=== PATIENT | male | born 1975 | race Caucasian/White ===

== ENCOUNTER 2017-06-10 19:06 | Emergency (ER) | payer MEDICARE, OTHER ==
[~2017-06-10] VITALS: Ht 180.3 cm; Wt 156.9 kg
[~2017-06-10 19:06] MED LIST: ATOR40TA59 PO; HYDR-2762 PO; IPRA3AMP NEB; OMEP20CA9 PO; PROP20TA PO
[2017-06-10 19:20] VITALS: BP 152/95
[2017-06-10] MEDS ORDERED: FLUORESCEIN OPHTH TEST STRIP. ONE (19:26)
[2017-06-10] MEDS ORDERED: TETRACAINE 0.5% OPHTH SOLUTION 4ML BOTTLE. ONE (19:27)
[2017-06-10] MEDS ORDERED: TETRACAINE 0.5% OPHTH SOLUTION 4ML BOTTLE. OD ONE (19:30)
[2017-06-10] MEDS ORDERED: FLUORESCEIN OPHTH TEST STRIP. OD ONE (19:30)
[2017-06-10] MEDS ORDERED: POLY10DR EACHEYE (19:46)
--- NOTE | 2017-06-10 19:47 | PHYS DOC ---
Past Medical History Past Medical History: GERD, Migraines, Other Additional Past Medical Histor: tourettes, right knee pain Past Surgical History: Other Additional Past Surgical Histo: DENTAL , RT KNEE Alcohol Use: None Drug Use: None Adult General Chief Complaint Chief Complaint: FOREIGN BODY/EYES HPI HPI Patient is a 42 year old male presents to the emergency department with foreign body sensation in the right eye. Patient states he was working on his truck yesterday when a piece arrest went in his eye. He states he removed the rest but has persistent discomfort and photophobia. No other complaints. Review of Systems Review of Systems Constitutional: Denies fever or chills [] Eyes: Photophobia, eye discomfort without visual disturbance HENT: Denies nasal congestion or sore throat [] Respiratory: Denies cough or shortness of breath [] Cardiovascular: No additional information not addressed in HPI [] GI: Denies abdominal pain, nausea, vomiting, bloody stools or diarrhea [] : Denies dysuria or hematuria [] Musculoskeletal: Denies back pain or joint pain [] Integument: Denies rash or skin lesions [] Neurologic: Denies headache, focal weakness or sensory changes [] Endocrine: Denies polyuria or polydipsia [] All other systems were reviewed and found to be within normal limits, except as documented in this note. Current Medications Current Medications Current Medications Medications (Trade) Dose Ordered Sig/Demetra Start Time Stop Time Status Last Admin Dose Admin Fluorescein Sodium (Ful-Sussy) 1 strip STK-MED ONCE 06/10/17 19:26 06/10/17 19:27 DC Tetracaine HCl (Tetracaine) 40 drop STK-MED ONCE 06/10/17 19:27 06/10/17 19:28 DC Allergies Allergies Allergies Coded Allergies Type Severity Reaction Last Updated Verified No Known Drug Allergies 07/28/13 No Physical Exam Physical Exam Constitutional: Well developed, well nourished, no acute distress, non-toxic appearance. [] Eyes: Affected eyes the right eye, sclera clear, pupil equal round reactive to light, funduscopic exam is benign. No visualized foreign body. Current Patient Data Vital Signs Vital Signs Date Time Temp Pulse Resp B/P (MAP) Pulse Ox O2 Delivery O2 Flow Rate FiO2 06/10/17 19:20 98.0 105 20 94 Room Air 98.0 EKG EKG [] Radiology/Procedures Radiology/Procedures [] Course & Med Decision Making Course & Med Decision Making Pertinent Labs and Imaging studies reviewed. (See chart for details) []Right eye anesthetized with Alcaine, upper lid everted, no foreign body visualized, or see stain applied. Visualized with the Au lamp, no foreign body, no corneal abrasion. Patient right eye copiously irrigated. Tolerated well. No foreign body sensation. Dragon Disclaimer Dragon Disclaimer This electronic medical record was generated, in whole or in part, using a voice recognition dictation system. Departure Departure Impression: Primary Impression: Eye pain Disposition: HOME, SELF-CARE Condition: STABLE Referrals: KAYDEN WELSH MD (PCP) [facility], Patient Instructions: Eye Injury-Brief Scripts Polymyxin B Sulf/Trimethoprim (POLYTRIM EYE DROPS) 10 Ml Drops 1 DROP EACHEYE Q6HRS for 5 Days, #10 ML Prov: DENI SALAZAR APRN 06/10/17 Problem Qualifiers Primary Impression: Eye pain Laterality: right Qualified Codes: H57.11 - Ocular pain, right eye DENI SALAZAR APRN Jun 10, 2017 19:47
[2017-06-10] MEDS ORDERED: DIPHTH,PERTUSS(ACELL),TET TOX 0.5 ML DISP.SYRIN. VAX IM ONE (20:15)
== END 2017-06-10 20:05 | disposition home or self-care (01) ==
LOC: ER 19:06
DX: H57.11 Ocular pain, right eye (principal); H53.141 Visual discomfort, right eye; K21.9 Gastro-esophageal reflux disease without esophagitis; G43.909 Migraine, unspecified, not intractable, without status migrainosus
CPT/HCPCS: 90471; 90715; 99283-25

== ENCOUNTER 2018-03-23 07:11 | Inpatient (IN) | payer MEDICARE, OTHER ==
[~2018-03-23] VITALS: Ht 180.3 cm; Wt 190.1 kg
[~2018-03-23 07:11] MED LIST changes: -IPRA3AMP NEB; +IPRA3AMP29 NEB; +POLY10DR EACHEYE
--- NOTE | 2018-03-23 07:20 | EKG ---
[facility] [address] [place] [address] Test Date: 2018-03-23 Test Time: 07:14:23 Pat Name: KEVIN BARBOZA Department: Room: Gender: M Art Class Model: : 1975 Requested By: LUZ LEES Order Number: [id number] Reading MD: Rocky Freitas MD Measurements Intervals [place] Rate: 95 P: 29 ID: 158 QRS: 28 QRSD: 86 T: 28 QT: 356 QTc: 451 Interpretive Statements SINUS RHYTHM Electronically Signed On 03-23-2018 12:28:07 CDT by Rocky Freitas MD
--- NOTE | 2018-03-23 07:36 | PHYS DOC ---
Past Medical History Past Medical History: GERD, Migraines, Other Additional Past Medical Histor: tourettes, right knee pain Past Surgical History: Other Additional Past Surgical Histo: DENTAL , RT KNEE Alcohol Use: None Drug Use: None Adult General Chief Complaint Chief Complaint: CHEST PAIN HPI HPI Patient is a 42 year old male who was presented here by EMS for evaluation of chest pain that he started last night. Patient also complaint of trouble breathing with that. Patient denies any history of coronary artery disease, denies history of diabetic. Patient denied any history of hypertension. Patient is obese. She denies any recent cough, no recent travel, no recent operation. She said the pain started in his left arm, radiated to his shoulder and into his chest. EMS were called, they gave him 324 mg aspirin, given 1 dose of nitroglycerin, that seemed to reduce the pain. Review of Systems Review of Systems Constitutional: Denies fever or chills [] Eyes: Denies change in visual acuity, redness, or eye pain [] HENT: Denies nasal congestion or sore throat [] Respiratory: Denies cough or shortness of breath [] Cardiovascular: Positive for chest pain. GI: Denies abdominal pain, nausea, vomiting, bloody stools or diarrhea [] : Denies dysuria or hematuria [] Musculoskeletal: Denies back pain or joint pain [] Integument: Denies rash or skin lesions [] Neurologic: Denies headache, focal weakness or sensory changes [] Endocrine: Denies polyuria or polydipsia [] All other systems were reviewed and found to be within normal limits, except as documented in this note. Allergies Allergies Allergies Coded Allergies Type Severity Reaction Last Updated Verified No Known Drug Allergies 07/28/13 No Physical Exam Physical Exam Constitutional: Well developed, well nourished, no acute distress, non-toxic appearance. Morbidly obese. HENT: Normocephalic, atraumatic, bilateral external ears normal, oropharynx moist, no oral exudates, nose normal. [] Eyes: PERRLA, EOMI, conjunctiva normal, no discharge. [] Neck: Normal range of motion, no tenderness, supple, no stridor. [] Cardiovascular:Heart rate regular rhythm, no murmur [] Lungs & Thorax: Bilateral breath sounds clear to auscultation [] Abdomen: Bowel sounds normal, soft, no tenderness, no masses, no pulsatile masses. [] Skin: Warm, dry, no erythema, no rash. [] Back: No tenderness, no CVA tenderness. [] Extremities: No tenderness, no cyanosis, no clubbing, ROM intact, no edema. [] Neurologic: Alert and oriented X 3, normal motor function, normal sensory function, no focal deficits noted. [] Psychologic: Affect normal, judgement normal, mood normal. [] Current Patient Data Vital Signs Vital Signs Date Time Temp Pulse Resp B/P (MAP) Pulse Ox O2 Delivery O2 Flow Rate FiO2 03/23/18 09:30 78 14 162/83 (109) 96 Room Air 03/23/18 07:11 98.1 98.1 Lab Values Laboratory Tests Test 03/23/18 07:30 White Blood Count 10.2 x10^3/uL (4.0-11.0) Red Blood Count 4.52 x10^6/uL (4.30-5.70) Hemoglobin 13.4 g/dL (13.0-17.5) Hematocrit 38.5 % (39.0-53.0) L Mean Corpuscular Volume 85 fL (79-100) Mean Corpuscular Hemoglobin 30 pg (25-35) Mean Corpuscular Hemoglobin Concent 35 g/dL (31-37) Red Cell Distribution Width 16.0 % (11.5-14.5) H Platelet Count 367 x10^3/uL (140-400) Neutrophils (%) (Auto) 63 % (31-73) Lymphocytes (%) (Auto) 25 % (24-48) Monocytes (%) (Auto) 6 % (0-9) Eosinophils (%) (Auto) 5 % (0-3) H Basophils (%) (Auto) 1 % (0-3) Neutrophils # (Auto) 6.5 x10^3uL (1.8-7.7) Lymphocytes # (Auto) 2.6 x10^3/uL (1.0-4.8) Monocytes # (Auto) 0.6 x10^3/uL (0.0-1.1) Eosinophils # (Auto) 0.5 x10^3/uL (0.0-0.7) Basophils # (Auto) 0.1 x10^3/uL (0.0-0.2) Prothrombin Time 12.7 SEC (11.7-14.0) Prothrombin Time INR 1.0 (0.8-1.1) PTT 27 SEC (24-38) Sodium Level 140 mmol/L (136-145) Potassium Level 4.1 mmol/L (3.5-5.1) Chloride Level 103 mmol/L (98-107) Carbon Dioxide Level 32 mmol/L (21-32) Anion Gap 5 (6-14) L Blood Urea Nitrogen 12 mg/dL (8-26) Creatinine 1.0 mg/dL (0.7-1.3) Estimated GFR (Cockcroft-Gault) 82.8 BUN/Creatinine Ratio 12 (6-20) Glucose Level 197 mg/dL (70-99) H Calcium Level 9.0 mg/dL (8.5-10.1) Magnesium Level 1.9 mg/dL (1.8-2.4) Total Bilirubin 0.4 mg/dL (0.2-1.0) Aspartate Amino Transferase (AST) 36 U/L (15-37) Alanine Aminotransferase (ALT) 71 U/L (16-63) H Alkaline Phosphatase 90 U/L (46-116) Creatine Kinase 69 U/L (39-308) Creatine Kinase MB (Mass) < 0.5 ng/mL (0.0-3.6) Creatine Kinase MB Relative Index % (0-4) Troponin I Quantitative < 0.017 ng/mL (0.000-0.055) GD-Mqv-J-Type Natriuretic Peptide 38 pg/mL (0-124) Total Protein 7.1 g/dL (6.4-8.2) Albumin 3.1 g/dL (3.4-5.0) L Albumin/Globulin Ratio 0.8 (1.0-1.7) L Lipase 129 U/L (73-393) Laboratory Tests 03/23/18 07:30 Laboratory Tests 03/23/18 07:30 EKG EKG ekg: heart rate of 95 bpm, no STEMI. Radiology/Procedures Radiology/Procedures [][facility] [address] [place] [address] IMAGING REPORT Signed PATIENT: KEVIN BARBOZA ACCOUNT: [id number] : 1975 LOCATION: ER AGE: 42 SEX: M EXAM STATUS: PRE ER ORD. PHYSICIAN: LUZ LEES DO REASON: chest pain PROCEDURE: PORTABLE CHEST 1V Portable chest, 03/23/2018: HISTORY: Left-sided chest pain Comparison is made to a study from 08/11/2015. The heart size and pulmonary vascularity are normal. The lungs are clear. There is no evidence of pleural fluid. IMPRESSION: No acute cardiopulmonary abnormality is detected. Electronically signed by: Suellen Gan MD (03/23/2018 7:38 AM) [facility] DICTATED and SIGNED BY: SUELLEN GAN MD DATE: 03/23/18 0738 Course & Med Decision Making Course & Med Decision Making Pertinent Labs and Imaging studies reviewed. (See chart for details) [] Dragon Disclaimer Dragon Disclaimer This electronic medical record was generated, in whole or in part, using a voice recognition dictation system. Departure Departure Impression: Primary Impression: Chest pain Disposition: ADMITTED INPATIENT Admitting Physician: Luna Whaley Condition: STABLE Referrals: MADELINE OLIVARES (PCP) LUZ LEES DO Mar 23, 2018 07:36
--- NOTE | 2018-03-23 07:42 | RAD ---
Portable chest, 03/23/2018: HISTORY: Left-sided chest pain Comparison is made to a study from 08/11/2015. The heart size and pulmonary vascularity are normal. The lungs are clear. There is no evidence of pleural fluid. IMPRESSION: No acute cardiopulmonary abnormality is detected. Electronically signed by: Jed Gan MD (03/23/2018 7:38 AM) [facility]
[2018-03-23 07:45] LABS: BASO # 0.1 x10^3/uL (0.0-0.2); BASO % 1 % (0-3); EOS # 0.5 x10^3/uL (0.0-0.7); EOS % 5 % (0-3); HEMATOCRIT 38.5 % (39.0-53.0); HEMOGLOBIN 13.4 g/dL (13.0-17.5); LYMPH # 2.6 x10^3/uL (1.0-4.8); LYMPH % 25 % (24-48); MEAN CORPUSCULAR HEMOGLOBIN 30 pg (25-35); MEAN CORPUSCULAR HGB CONC 35 g/dL (31-37); MEAN CORPUSCULAR VOLUME 85 fL (79-100); MONO # 0.6 x10^3/uL (0.0-1.1); MONO % 6 % (0-9); NEUT # 6.5 x10^3uL (1.8-7.7); NEUT % 63 % (31-73); PLATELET COUNT 367 x10^3/uL (140-400); RED BLOOD COUNT 4.52 x10^6/uL (4.30-5.70); WHITE BLOOD COUNT 10.2 x10^3/uL (4.0-11.0)
[2018-03-23 07:55] LABS: GFR 82.8; POTASSIUM 4.1 mmol/L (3.5-5.1)
[2018-03-23 07:58] LABS: PROTHROMBIN TIME PATIENT 12.7 SEC (11.7-14.0)
[2018-03-23 08:00] LABS: ALBUMIN 3.1 g/dL (3.4-5.0); ALBUMIN/GLOBULIN RATIO 0.8 (1.0-1.7); MAGNESIUM 1.9 mg/dL (1.8-2.4); TOTAL BILIRUBIN 0.4 mg/dL (0.2-1.0); TOTAL PROTEIN 7.1 g/dL (6.4-8.2)
[2018-03-23 08:10] LABS: CREATINE KINASE 69 U/L (39-308)
--- NOTE | 2018-03-23 11:29 | HP ---
ADMIT DATE: 03/23/2018 CHIEF COMPLAINT: Chest pain. HISTORY OF PRESENT ILLNESS: The patient is a pleasant 42-year-old male who is morbidly obese who presents with chest pain. He used to smoke, but he quit 9 months ago. He has associated nausea that has been occurring off and on for most of the day. When I arrived, he still got more pain. I discussed the case with ER physician. We are going to admit the patient and consult Cardiology. PAST MEDICAL HISTORY: Morbid obesity, Tourette's, GERD, migraines, right knee pain, dental surgery and right knee surgery. ALLERGIES: None. FAMILY HISTORY: Coronary artery disease. SOCIAL HISTORY: He quit smoking 9 months ago. He works as a automobile mechanic motor. He does not take drugs. MEDICATIONS: Reviewed, please refer to the MRAD. REVIEW OF SYSTEMS: GENERAL: No history of weight change, weakness or fevers. SKIN: No bruising, hair changes or rashes. EYES: No blurred, double or loss of vision. NOSE AND THROAT: No history of nosebleeds, hoarseness or sore throat. HEART: He complains of chest pain. LUNGS: Denies cough, hemoptysis, wheezing or shortness of breath. GASTROINTESTINAL: Denies changes in appetite, nausea, vomiting, diarrhea or constipation. GENITOURINARY: No history of frequency, urgency, hesitancy or nocturia. NEUROLOGIC: Denies history of numbness, tingling, tremor or weakness. PSYCHIATRIC: No history of panic, anxiety or depression. ENDOCRINE: No history of heat or cold intolerance, polyuria or polydipsia. EXTREMITIES: Denies muscle weakness, joint pain, pain on walking or stiffness. PHYSICAL EXAMINATION: VITAL SIGNS: Temperature afebrile, pulse 90, respirations 18 and blood pressure 144/90. GENERAL: He is alert, cooperative and little anxious. HEART: Normal S1 and S2. LUNGS: Clear. ABDOMEN: Soft and obese. EXTREMITIES: Trace edema. ENDOCRINE: No thyromegaly. LYMPHATICS: No cervical nodes. HEMATOPOIETIC: No bruising. LABORATORY DATA: Troponin is 0. Hematology is normal. Electrolytes are normal. EKG shows sinus rhythm. ASSESSMENT AND PLAN: Chest pain, rule out coronary artery disease. The patient has been admitted. We will check serial enzymes, serial EKGs, cardiac monitoring, consult Cardiology, daily aspirin and home meds. FLAQIUTO TUCKER DO DR: Keven JOB#: [id number] / [id number]
[2018-03-23 11:35] VITALS: BP 140/81
[2018-03-23] MEDS ORDERED: ATOR20TA58 PO (11:59)
[2018-03-23] MEDS ORDERED: METF500T16 PO (11:59)
[2018-03-23] MEDS ORDERED: SUCR1TAB PO (11:59)
[2018-03-23] MEDS ORDERED: OMEP40CA5 PO (11:59)
[2018-03-23] MEDS ORDERED: DOCUSATE SODIUM 100 MG CAPSULE. PO PRN (12:00)
[2018-03-23] MEDS ORDERED: DOCU100C28 PO (12:02)
[2018-03-23] MEDS: PANTOPRAZOLE 40 MG TABLET.DR. PO SCH ×2 (12:16→16:30)
--- NOTE | 2018-03-23 12:54 | PDOC2 ---
JULIANA MONTGOMERY [employer] 03/23/18 1254: CARDIAC CONSULT DATE OF CONSULT Date of Consult DATE: 03/23/18 TIME: 12:26 REASON FOR CONSULT Reason for Consult: chest pain REFERRING PHYSICIAN Referring Physician: Renan SOURCE Source: Chart review, Patient HISTORY OF PRESENT ILLNESS HISTORY OF PRESENT ILLNESS This is a pleasant 42 yo male admitted for complains of chest pain. 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 He has been working on a car enging which does require heavy lifting. He has been doing this without any problem. No exertional CP and SOA. Denies any nausea or diaphoresis but reports of daily heartburn and pain with deep breathing as well but no past hx of PUD. No reports of any injury, neck problem, or shoulder problem. ROM to neck and shoulder did not precipitate this pain. Described it as pressure to left chest with radiating pain to left side of neck and left arm with some numbness. No prior CAD, VTE. Reports of morning HAs, midday tiredness and insomnia. Positive for HTN and HLP and preDM. PAST MEDICAL HISTORY Cardiovascular: HTN, Hyperlipidemia Pulmonary: No pertinent hx CENTRAL NERVOUS SYSTEM: Other (tourrettes) GI: GERD Heme/Onc: No pertinent hx Hepatobiliary: No pertinent hx Psych: No pertinent hx Musculoskeletal: Other (morbid obesity) Rheumatologic: No pertinent hx Infectious disease: No pertinent hx ENT: No pertinent hx Renal/: No pertinent hx Endocrine: Diabetes (pre) Dermatology: No pertinent hx PAST SURGICAL HISTORY Past Surgical History: Arthroscopy (left knee), Other (oral surgery) FAMILY HISTORY Family History: Coronary Artery Disease (mother and father) SOCIAL HISTORY Smoke: Quit ALCOHOL: none Drugs: None Lives: with Family CURRENT MEDICATIONS CURRENT MEDICATIONS Current Medications Medications (Trade) Dose Ordered Sig/Demetra Route PRN Reason Start Time Stop Time Status Last Admin Dose Admin Pantoprazole Sodium (Protonix) 40 mg BIDAC PO 03/23/18 12:30 03/23/18 12:16 ALLERGIES ALLERGIES: Coded Allergies: No Known Drug Allergies (Unverified , 07/28/13) ROS Review of System 14 point ROS evaluated with pertinent positives noted per HPI PHYSICAL EXAM General: Alert, Oriented X3, Cooperative, No acute distress HEENT: Atraumatic, Mucous membr. moist/pink Lungs: Other (diminished unable to appreciate due to body habitus) Heart: Regular rate (SR), Other (distant heart sounds with body habitus) Abdomen: Soft, Other (obese) Extremities: Other (1+ bilateral LE pittingedema) Skin: No breakdown, No significant lesion Neuro: Normal speech, Sensation intact Psych/Mental Status: Mood NL MUSCULOSKELETAL: Osteoarthritic changes both hands VITALS VITALS Vital Signs Date Time Temp Pulse Resp B/P (MAP) Pulse Ox O2 Delivery O2 Flow Rate FiO2 03/23/18 11:35 97.9 84 22 140/81 (100) 95 Room Air 97.9 LABS Lab: Laboratory Tests Test 03/23/18 07:30 White Blood Count 10.2 x10^3/uL (4.0-11.0) Red Blood Count 4.52 x10^6/uL (4.30-5.70) Hemoglobin 13.4 g/dL (13.0-17.5) Hematocrit 38.5 % (39.0-53.0) Mean Corpuscular Volume 85 fL (79-100) Mean Corpuscular Hemoglobin 30 pg (25-35) Mean Corpuscular Hemoglobin Concent 35 g/dL (31-37) Red Cell Distribution Width 16.0 % (11.5-14.5) Platelet Count 367 x10^3/uL (140-400) Neutrophils (%) (Auto) 63 % (31-73) Lymphocytes (%) (Auto) 25 % (24-48) Monocytes (%) (Auto) 6 % (0-9) Eosinophils (%) (Auto) 5 % (0-3) Basophils (%) (Auto) 1 % (0-3) Neutrophils # (Auto) 6.5 x10^3uL (1.8-7.7) Lymphocytes # (Auto) 2.6 x10^3/uL (1.0-4.8) Monocytes # (Auto) 0.6 x10^3/uL (0.0-1.1) Eosinophils # (Auto) 0.5 x10^3/uL (0.0-0.7) Basophils # (Auto) 0.1 x10^3/uL (0.0-0.2) Prothrombin Time 12.7 SEC (11.7-14.0) Prothromb Time International Ratio 1.0 (0.8-1.1) Activated Partial Thromboplast Time 27 SEC (24-38) Sodium Level 140 mmol/L (136-145) Potassium Level 4.1 mmol/L (3.5-5.1) Chloride Level 103 mmol/L (98-107) Carbon Dioxide Level 32 mmol/L (21-32) Anion Gap 5 (6-14) Blood Urea Nitrogen 12 mg/dL (8-26) Creatinine 1.0 mg/dL (0.7-1.3) Estimated GFR (Cockcroft-Gault) 82.8 BUN/Creatinine Ratio 12 (6-20) Glucose Level 197 mg/dL (70-99) Calcium Level 9.0 mg/dL (8.5-10.1) Magnesium Level 1.9 mg/dL (1.8-2.4) Total Bilirubin 0.4 mg/dL (0.2-1.0) Aspartate Amino Transf (AST/SGOT) 36 U/L (15-37) Alanine Aminotransferase (ALT/SGPT) 71 U/L (16-63) Alkaline Phosphatase 90 U/L (46-116) Creatine Kinase 69 U/L (39-308) Creatine Kinase MB (Mass) < 0.5 ng/mL (0.0-3.6) Creatine Kinase MB Relative Index % (0-4) Troponin I Quantitative < 0.017 ng/mL (0.000-0.055) FH-Ile-P-Type Natriuretic Peptide 38 pg/mL (0-124) Total Protein 7.1 g/dL (6.4-8.2) Albumin 3.1 g/dL (3.4-5.0) Albumin/Globulin Ratio 0.8 (1.0-1.7) Lipase 129 U/L (73-393) ASSESSMENT/PLAN ASSESSMENT/PLAN 1. Chest pain: mixed features. Suspect MSK with radicular element 2. HTN: controlled 3. HLP 4. DM2 5. Suspect SY and undiagnosed DAGO 6. Morbid obesity Recommendation 1. MPI today givven his significant cardiac risk factors. 2. ASA. Restart home meds. 3. Wt loss, will benefit from bariatric surgery. 4. Lipids, A1C, and TSH CARLOS BOLIVAR MD 03/23/18 1322: CARDIAC CONSULT ASSESSMENT/PLAN ASSESSMENT/PLAN Patient seen and examined. Agree with VALET RUNNER's assessment and plan. Chest pain with atypical features and most probably musculoskeletal One set of cardiac enzymes negative and EKG without acute changes Check 2-D echo to assess LV systolic function and rule out wall motion abnormalities Thank you for your consultation JULIANA MOTNGOMERY APRN Mar 23, 2018 12:54 CARLOS BOLIVAR MD Mar 23, 2018 13:22
[2018-03-23] MEDS: SUCRALFATE 1 GM TABLET. PO SCH ×2 (13:00→16:30)
[2018-03-23] MEDS ORDERED: PROPRANOLOL 10 MG TABLET. PO SCH (13:00)
[2018-03-23] MEDS ORDERED: REGADENOSON 0.4 MG/5 ML DISP.SYRIN. IV ONE ×2 (13:15→14:00)
[2018-03-23 13:52] LABS: CHOLESTEROL/HDL RATIO 6.4
--- NOTE | 2018-03-23 14:23 | RAD ---
MR#: [id number] Date of Study: 03/23/2018 Ordering Physician: JULIANA MONTGOMERY, Referring Physician: SANTO PINK Tech: RT Ion Casanova) (N) APPROVED REPORT Test Type: Pharmacological Stress Nurse/Tech: Sean Hylton Test Indications: CP, Left arm pain Cardiac History: HTN, Smoker quit 9 mths ago Medications: See EMR Medical History: DM II Resting ECG: SR Resting Heart Rate: 85 bpm Resting Blood Pressure: 156/78mmHg Pretest Chest Pain: No chest pain Nurse/Tech Notes Lungs CTA, Heart tones regular. Consent: The procedure was explained to the patient in lay terms. Informed consent was witnessed. Joaquin eout was entered into Strap. History and Stress Test performed by RT Ky CasanovaR) (N) Pharm. Details Pharmacologic stress testing was performed using 0.4mg per 5ml of regadenoson given intravenously ove r 7-10 seconds. Stress Symptoms Pt explains having a sharp pain shooting down his left arm with a pain level of 2/10, 2 min into yumiko very. This pain last about 5 secs. Pt denies any further chest pain or SOB. In Stage 1, 1 min into test t waves flatten out; but then return to normal by recovery. POST EXERCISE Reason for Termination: Infusion complete Max HR: 118 bpm Max Blood Pressure: 155/68mmHg Chest Pain: No. See stress symptoms comment Arrhythmia: No. ST Change: No. See above comments. INTERPRETATION Stress EKG Conclusion: Baseline EKG showed sinus rhythm. No ischemic changes at peak stress. No arr hythmias. Imaging Protocol IMAGE PROTOCOL: Stress Tc-99m/rest Tc-99m 2 days Rest: Stress: Viability: Radiopharm.Tc99m Sestamibi [id number] Duration 15min. Img Date 03/23/2018 Inj-Img [id number]. Stress Admin Site: IV - Left AntecubitalAdministrator: KATARZYNA Anthony STRESS DATA End Diast. Vol.125.0mlAv. Heart Rate91.0bpm End Syst. Vol.44.0mlCO Index BSA0.0L/min Myocardial Ckgs702.0gEject. Xgcxgxjq68.0% Stress Rates Pk. Fill Rate3.56EDV/secLVtime Pk. Fill 191.17msec Pk. Empty Rate5.00ESV/secLVtime Pk. Eject87.15msec 1/3 Pk. Fill1.93EDV/sec Stress Scores Regional WT0.00Summed WT0.00 Regional WM0.00Summed WM2.00 LV Perfusion Stress scintigraphic images did not show any significant perfusion defects. Wall Motion Normal left ventricular systolic function with ejection fraction calculated at 65%. LV Perf. Quant 17 Seg. SSS1.00 Stress Defect Extent (% LAD)10.00Rest Defect Extent (% LAD)Rev. Defect Extent (% LAD)5.00 Stress Defect Extent (% LCX) 0.00Rest Defect Extent (% LCX)Rev. Defect Extent (% LCX)0.00 Stress Defect Extent (% RCA)0.00Rest Defect Extent (% RCA)Rev. Defect Extent (% RCA)0.00 Stress Defect Extent (% PITA)3.50Rest Defect Extent (% PITA)Rev. Defect Extent (% PITA)1.70 Conclusion 1. Regadenoson cardioisotope stress test did not show any evidence of ischemia or infarct. 2. Normal left ventricular systolic function with ejection fraction calculated at 65%. 3. Low risk for cardiac events. Signed by : Gagan Dhaliwal, Electronically Approved : 03/23/2018 14:22:53
[2018-03-23 15:00] VITALS: BP 153/93
[2018-03-23] MEDS ORDERED: PERFLUTREN PROTEIN-A MICROSPHR 0.22 MG/ML 3 ML VIAL. IV ONE (15:22)
[2018-03-23] MEDS ORDERED: HYDROcodone/APAP 5/325MG 1 TAB TABLET PO PRN (16:15)
[2018-03-23 16:23] VITALS: BP 137/86
[2018-03-23] MEDS: PERFLUTREN PROTEIN-A MICROSPHR 0.22 MG/ML 3 ML VIAL. IV PRN ×3 (16:30→16:32)
[2018-03-23] MEDS ORDERED: diphenhydrAMINE HCL 25 MG CAPSULE PO PRN (16:30)
[2018-03-23] MEDS ORDERED: PANTOPRAZOLE 40 MG TABLET.DR. PO SCH (16:30)
[2018-03-23] MEDS ORDERED: metFORMIN 500 MG TABLET PO SCH (17:00)
[2018-03-23] MEDS ORDERED: ACETAMINOPHEN 500 MG TABLET PO PRN (17:45)
[2018-03-23] MEDS ORDERED: ONDANSETRON PF 4 MG/2 ML VIAL. IV PRN (17:45)
[2018-03-23] MEDS ORDERED: ONDANSETRON ODT 4 MG TAB.RAPDIS. PO PRN (17:45)
[2018-03-23] MEDS ORDERED: ZOLPIDEM 5 MG TABLET. PO PRN (17:45)
--- NOTE | 2018-03-23 18:10 | CARD ---
MR#: [id number] Date of Study: 03/23/2018 Ordering Physician: CARLOS BOLIVAR, Referring Physician: Reinier PINK: Aidee Howard APPROVED REPORT EXAM: Two-dimensional and M-mode echocardiogram with Doppler and color Doppler. Other Information Quality : PoorHR: 97bpm Technically limited study due to body habitus. INDICATION Chest Pain 2D DIMENSIONS RVDd3.5 (2.9-3.5cm)Left Atrium(2D)3.7 (1.6-4.0cm) IVSd1.2 (0.7-1.1cm)Aortic Root(2D)3.4 (2.0-3.7cm) LVDd5.0 (3.9-5.9cm)LVOT Diameter2.8 (1.8-2.4cm) PWd1.3 (0.7-1.1cm)LVDs3.0 (2.5-4.0cm) FS (%) 40.1 %SV85.0 ml LVEF(%)70.5 (>50%) Aortic Valve AoV Peak Emil.103.0cm/sAoV VTI17.0cm AO Peak GR.4.2mmHgLVOT VTI 16.07cm AO Mean GR.3mmHg Mitral Valve MV E Vzwecdgk24.2cm/sMV DECEL ZUUR381ih MV A Znehoire59.6cm/sE/A Ratio1.0 TDI Medial E' P. V7.59cm/sE/Medial E'9.6 Pulmonary Vein S1 Nhnxtdzh93.1cm/sS2 Qlpdlpju64.36cm/s D2 Gtnjbzix46.4cm/sPVa [id number] LEFT VENTRICLE The left ventricle is normal size. There is borderline concentric left ventricular hypertrophy. The l eft ventricular systolic function is normal and the ejection fraction is within normal range. The Eje ction Fraction is 65-70%. There is normal LV segmental wall motion. Tissue Doppler imaging reveals mo derate left ventricular diastolic dysfunction. RIGHT VENTRICLE The right ventricle is normal size. There is normal right ventricular wall thickness. The right ventr icular systolic function is normal. ATRIA The left atrium size is normal. The right atrium size is normal. Atrial septum not well visualized. AORTIC VALVE Grossly trileaflet. Doppler and Color Flow revealed no significant aortic regurgitation. There is no significant aortic valvular stenosis. MITRAL VALVE The mitral valve is normal in structure and function. There is no mitral valve stenosis. Doppler and Color Flow revealed no mitral valve regurgitation noted. TRICUSPID VALVE Not well visualized. Doppler and Color Flow revealed no tricuspid valve regurgitation noted. No signi ficant stenosis. PULMONIC VALVE Not well visualized. Doppler and Color Flow revealed no pulmonic valvular regurgitation. GREAT VESSELS The aortic root is normal in size. Normal pulmonary venous flow (Doppler). PERICARDIAL EFFUSION There is no evidence of significant pericardial effusion. Critical Notification Critical Value: No <Conclusion> The left ventricular systolic function is normal and the ejection fraction is within normal range. Th e Ejection Fraction is 65-70%. There is normal LV segmental wall motion. Signed by : Rocky Freitas, Electronically Approved : 03/23/2018 18:09:34
[2018-03-23] MEDS ORDERED: IPRATRPIUM/ALBUTEROL 0.5/2.5MG 3 ML NEBU. NEB SCH (20:00)
[2018-03-24] MEDS ORDERED: ATORVASTATIN CALCIUM 20 MG TABLET PO SCH (21:00)
== END 2018-03-23 17:50 | disposition home or self-care (01) | DRG 313 ==
LOC: ER 07:11 → 2 NORTH 10:39 → EEVIPCON 10:39
PROVIDERS: ADMIT Internal Medicine; ATTEND Internal Medicine
DX: R07.89 Other chest pain (principal); Z68.43 Body mass index [BMI] 50.0-59.9, adult; F95.2 Tourette's disorder; K21.9 Gastro-esophageal reflux disease without esophagitis; G43.909 Migraine, unspecified, not intractable, without status migrainosus; I10 Essential (primary) hypertension; E78.5 Hyperlipidemia, unspecified; E66.01 Morbid (severe) obesity due to excess calories; E11.9 Type 2 diabetes mellitus without complications; G47.00 Insomnia, unspecified; Z87.891 Personal history of nicotine dependence; Z82.49 Family history of ischemic heart disease and other diseases of the circulatory system
CPT/HCPCS: 99285; C8929; 36415; 71045; 78452; 80053; 80061; 82550; 82553; 82962; 83690; 83735; 83880; 84443; 84484; 85025; 85610; 85730; 93005; 93017; 96374; 96375; A9500; J2785; Q9956